=== PATIENT | male | born 1960 | race Caucasian/White ===

== ENCOUNTER 2020-06-06 08:02 | Emergency (ER) | payer BC ==
[~2020-06-06] VITALS: Ht 177.8 cm; Wt 75.0 kg
--- NOTE | 2020-06-06 09:41 | NUR ---
dr. [email or web address] at [facility] doing ultrasound
[2020-06-06 09:43] LABS: CLARITY,URINE CLEAR (Clear); COLOR,URINE STRAW (Yellow); GLUCOSE, URINE >=1000 mg/dl (Neg); KETONES,URINE 40 mg/dl (Neg); LEUKOCYTE ESTERASE ,URINE NEGATIVE (Neg); NITRITES, URINE NEGATIVE (Neg); OCCULT BLOOD,URINE TRACE-INTACT (Neg); PROTEIN,URINE NEGATIVE (Neg); UROBILINOGEN,URINE 0.2 E.U/dL (0.2-1.0)
[2020-06-06 09:49] LABS: UA COLLECTION TYPE CLN CATCH MIDSTREAM
[2020-06-06 09:50] LABS: SQUAMOUS EPITHELIAL CELL,UR FEW /LPF (FEW)
[2020-06-06 09:51] LABS: BACTERIA,URINE FEW /HPF (Neg); RBC,URINE 0-2 /HPF (0-2); WBC,URINE 0-4 /HPF (0-4)
[2020-06-06] MEDS ORDERED: morphine 10mg/ml inj. IV ONE (10:05)
[2020-06-06 10:20] LABS: BASOPHILS % (AUTO) 0.3 % (0-1); EOSINOPHILS % (AUTO) 0.2 % (0-6); HEMATOCRIT 44.8 % (42.0-52.0); HEMOGLOBIN 15.1 g/dl (14.0-17.9); LYMPHOCYTES % (AUTO) 12.8 % (21-51); MEAN CORPUSCULAR HEMOGLOBIN 31.7 PG (27.0-31.0); MEAN CORPUSCULAR HGB CONC 33.8 g/dL (33.0-36.5); MEAN CORPUSCULAR VOLUME 93.7 FL (78-98); MEAN PLATELET VOLUME 9.4 FL (7.4-10.4); MONOCYTES # (AUTO) 0.5 X10'3 (0-0.9); MONOCYTES % (AUTO) 7.1 % (2-12); NEUTROPHILS # (AUTO) 6.2 X10'3 (1.8-7.7); NEUTROPHILS % (AUTO) 79.6 % (42-75); PLATELET COUNT 234 X10'3 (140-440); RED BLOOD COUNT 4.78 X10'6 (4.70-6.10); RED CELL DISTRIBUTION WIDTH 14.5 % (11.5-14.5); WHITE BLOOD COUNT 7.7 X10'3 (4.5-11.0)
[2020-06-06 10:35] LABS: ALBUMIN 3.4 G/DL (3.4-5.0); ANION GAP 6 (8-16); BLOOD UREA NITROGEN 16 MG/DL (7-18); BUN/CREATININE RATIO 13.7 (5.4-32.0); CALCIUM 9.6 MG/DL (8.5-10.1); CHLORIDE 100 MMOL/L (99-107); CREATININE 1.17 MG/DL (0.60-1.10); GLUCOSE 203 MG/DL (70-104); POTASSIUM 4.7 MMOL/L (3.5-5.1); SODIUM 134 MMOL/L (135-145); TOTAL CARBON DIOXIDE 27.8 MMOL/L (24-32); eGFR 64 ML/MIN
[2020-06-06] MEDS ORDERED: iohexol 350MG/ML 100ml bottle IV ONE (10:52)
--- NOTE | 2020-06-06 10:57 | NUR ---
PT TO CT.
[2020-06-06 12:16] VITALS: BP 137/83
== END 2020-06-06 12:19 | disposition home or self-care (01) ==
LOC: ER 08:03
DX: M54.5 Low back pain (principal); Z88.8 Allergy status to other drugs, medicaments and biological substances; Z88.5 Allergy status to narcotic agent
CPT/HCPCS: 36415; 71275; 74174; 76857; 80048; 81001; 85025; 93005; 96374; 99285; J2270; Q9967

== ENCOUNTER 2020-09-08 16:18 | Emergency (ER) | payer BC ==
[~2020-09-08] VITALS: Ht 177.8 cm; Wt 84.1 kg
== END 2020-09-08 17:20 | disposition left against medical advice (07) ==
LOC: ER 16:18
DX: J02.9 Acute pharyngitis, unspecified (principal); R53.83 Other fatigue; E11.9 Type 2 diabetes mellitus without complications; Z88.6 Allergy status to analgesic agent; Z88.8 Allergy status to other drugs, medicaments and biological substances
CPT/HCPCS: 87081; 87880; 99283

== ENCOUNTER 2020-09-10 07:43 | Emergency (ER) | payer BC ==
[~2020-09-10] VITALS: Ht 177.8 cm; Wt 81.8 kg
[2020-09-10] MEDS ORDERED: NYST1000 PO (21:55)
[2020-09-10] MEDS ORDERED: FLUC150T PO (21:55)
== END 2020-09-10 08:48 | disposition home or self-care (01) ==
LOC: ER 07:44
DX: J02.9 Acute pharyngitis, unspecified (principal); Z20.828 Contact with and (suspected) exposure to other viral communicable diseases; E11.9 Type 2 diabetes mellitus without complications; Z87.891 Personal history of nicotine dependence; Z72.89 Other problems related to lifestyle; Z88.8 Allergy status to other drugs, medicaments and biological substances
CPT/HCPCS: 36415; 87635; 99283

== ENCOUNTER 2020-09-10 21:07 | Emergency (ER) | payer BC ==
[~2020-09-10] VITALS: Ht 177.8 cm; Wt 81.8 kg
[2020-09-10] MEDS ORDERED: FLUC150T PO (21:55)
[2020-09-10] MEDS ORDERED: NYST1000 PO (21:55)
== END 2020-09-10 22:05 | disposition home or self-care (01) ==
LOC: ER 21:08
DX: B37.0 Candidal stomatitis (principal); E11.9 Type 2 diabetes mellitus without complications; Z79.899 Other long term (current) drug therapy; Z88.6 Allergy status to analgesic agent; Z88.5 Allergy status to narcotic agent
CPT/HCPCS: 99283